=== PATIENT | male | born 1935 | race Caucasian/White ===

== ENCOUNTER 2018-09-08 15:07 | Outpatient (REF) | payer MEDICARE, BC, SELFPAY ==
[2018-09-08 22:26] LABS: HCT 39.1 % (40.0-50.0); HGB 12.8 g/dL (13.5-17.5)
[2018-09-08 22:52] LABS: ALT 25 U/L (12-78); AST 17 U/L (15-37); Albumin 4.3 g/dL (3.4-5.0); Alkaline Phosphatase 102 U/L (46-116); Anion Gap 7.7 mmol/L (3-11); BUN 17 mg/dL (7-18); Bilirubin, Total 0.5 mg/dL (0.2-1.0); CO2 29.3 mmol/L (21.0-32.0); CREATININE 1.19 mg/dL (0.70-1.30); Calcium 9.8 mg/dL (8.5-10.1); Chloride 105 mmol/L (98-107); Estimated GFR 58.38 (mL/min/1.73m2); Glucose 103 mg/dL (70-100); Magnesium 2.3 mg/dL (1.8-2.4); Potassium 4.6 mmol/L (3.5-5.1); Sodium 142 mmol/L (136-145); TSH (W/Ref FT4) 2.18 uIU/mL (0.36-3.74); Total Protein 7.3 g/dL (6.4-8.2)
== END 2018-09-08 15:27 ==
LOC: NCHCN 15:07
PROVIDERS: PCP Internal Medicine; Visit Provider Family Medicine
DX: I10 Essential (primary) hypertension (principal); I25.10 Atherosclerotic heart disease of native coronary artery without angina pectoris; R25.2 Cramp and spasm; R73.09 Other abnormal glucose
CPT/HCPCS: 80053; 83036; 83735; 84443; 85014; 85018

== ENCOUNTER 2019-06-02 10:30 | Outpatient (REF) | payer MEDICARE, BC, SELFPAY ==
[2019-06-02 21:40] LABS: Abs Immature Grans 0.06 k/cumm (0.0-0.09); Absolute Basophil Count 0.03 k/cumm (0.0-0.2); Absolute Lymphocyte Count 2.24 k/cumm (1.2-3.4); Absolute Neutrophil Count 13.38 k/cumm (1.2-6.7); Basophils % 0.2; Eosinophils % 1.1; HCT 39.8 % (40.0-50.0); Immature Grans % 0.3 %; Lymphocytes % 12.9; Mean Corp. HGB Concentration 32.7 g/dL (32.0-36.0); Mean Corpuscular Hemoglobin 28.8 pg (27.0-33.0); Mean Corpuscular Volume 88.2 fL (80-95); Mean Platelet Volume 11.3 fL (8.0-11.0); Monocytes % 8.6; Neutrophils % 76.9; Platelet Count 298 x1000/uL (130-400); RBC 4.51 m/cumm (4.50-6.00)
[2019-06-02 21:44] LABS: Absolute Eosinophil Count 0.19 k/cumm (0.0-0.7)
[2019-06-02 22:15] LABS: Anion Gap 6.3 mmol/L (3-11); BUN 16 mg/dL (7-18); CO2 28.7 mmol/L (21.0-32.0); CREATININE 1.34 mg/dL (0.70-1.30); Calcium 9.3 mg/dL (8.5-10.1); Chloride 102 mmol/L (98-107); Estimated GFR 50.91 (mL/min/1.73m2); Glucose 109 mg/dL (74-106); Potassium 4.8 mmol/L (3.5-5.1); Sodium 137 mmol/L (136-145)
== END 2019-06-02 10:50 ==
LOC: NCHCN 10:30
PROVIDERS: PCP Registered Nurse; Visit Provider Registered Nurse
DX: R35.0 Frequency of micturition (principal); R50.9 Fever, unspecified
CPT/HCPCS: 80048; 87077; 85025; 87086; 87186